=== PATIENT | female | born 1995 | race Caucasian/White ===

== ENCOUNTER 2020-04-08 11:30 | Emergency (ER) | payer BC, SELFPAY ==
[2020-04-08 11:31] VITALS: BP 122/70; PULSE 116; RESP 20; TEMP 35.9; O2SAT 99; BMI 25.6
--- NOTE | 2020-04-08 11:45 | US_ITS ---
STUDY: FIRST TRIMESTER OBSTETRICAL ULTRASOUND REASON FOR EXAM: Female, 25 years old heavy bleeding LMP: January 09, 2020 TECHNIQUE: Transvaginal TECHNICAL QUALITY: Adequate. PRIOR ULTRASOUND: None. FINDINGS: There is no demonstrated intrauterine gestational sac. There is no demonstrated yolk sac. The uterus measures 10.1 x 5.4 x 6.1 cm. There is no demonstrated uterine fibroid. The endometrial stripe measures 6.4 mm and is hyperechoic at the level of the uterine fundus. Within the lower uterine segment the endometrium is thickened measuring up to 17.9 mm and is slightly heterogenous. The right ovary measures 2.9 x 3.3 x 1.8 cm. There is no right ovarian cyst. There is no visualized right adnexal mass or complex lesion. The left ovary measures 2.8 x 2.9 x 1.3 cm. There is no left ovarian cyst. There is no visualized left adnexal mass or complex lesion. There is minimal fluid in the cul de sac. US/Transvaginal w/Preg US IMPRESSION: No intrauterine identified. Thickened slightly heterogenous endometrial stripe within the lower uterine segment, may be partially secondary to blood products. Electronically Signed: Allyson Aviles MD at 15:29 EDT Tel , Service support ,
--- NOTE | 2020-04-08 11:48 | ED.DCSUM_ITS ---
History of Present Illness Informant: Patient Onset: Today Context: Sudden Onset Timing: Continuous Quality: Vaginal bleeding Location: Vaginal Current Severity: Moderate Maximum Severity: Severe Worsened by: Nothing Relieved by: Nothing Associated Symptoms: Pelvic cramping Narrative: 25-year-old female G2, P1 with a natural delivery about 5 years ago presents to the emergency department with vaginal bleeding. She states that she estimates she is 11 weeks based on her last menstrual period and she had a positive home test last week. She has not yet seen an [facility]. She woke up at 4 AM today to use the bathroom and noticed a heavy amount of vaginal bleeding similar to the amount of bleeding she gets with a period. And she had some small clots. Some mild pelvic cramping. Bleeding has continued throughout the morning. She is not lightheaded or dizzy. No nausea vomiting or diarrhea. No cough congestion or chest pain. No urinary symptoms. No sick contacts. She is not on blood thinners. Prior similar symptoms: No Recent Illness/Hospitalization: No <Delifno Couch - Last Filed: 04/08/20 15:37> <Mian Koenig - Last Filed: 05/02/20 14:37> Chief Complaint: Vag Bld, Preg Past Medical History Prior records reviewed: Yes Past Medical History: None Surgical History: no surgical history Lives: With Family Smoking Status: Former smoker Alcohol: None Drugs: None <Delfino Couch - Last Filed: 04/08/20 15:37> <Mian Koenig - Last Filed: 05/02/20 14:37> - Allergies and Home Meds Allergies/Adverse Reactions: Allergies venom-honey bee [bee venom (honey bee)] Adverse Reaction (Verified 04/08/20 11:30) Anaphylaxis Primary Care Physician: Nick Gil MD [STAFF PHYSICIAN] - Matilde Reyes MD [Primary Care Provider] - Review of Systems All systems negative except as indicated General: Denies: Chills, Fever, Malaise Eyes: Denies: Visual changes - bilaterally, Blurred Vision - bilaterally, Diplopia ENT: Denies: Rhinorrhea, Sore throat Cardiovascular: Denies: Chest pain, Palpitations, Heart racing Respiratory: Denies: Dyspnea, Cough, Sputum Gastrointestinal: Reports: Abdominal pain. Denies: Nausea, Vomiting, Diarrhea, Constipation, Melena, Hematochezia Genitourinary: Reports: - - Vaginal bleeding. Denies: Dysuria, Hematuria, Frequency Musculoskeletal: Denies: Myalgias, Arthralgias, Neck pain, Back pain Skin: Denies: Rash, Abscess, Abrasions, Wounds Neurological: Denies: Headache, Weakness Hematologic: Denies: Easy bruising, Easy bleeding <Delfino Couch - Last Filed: 04/08/20 15:37> Physical Exam Vital Signs/Narrative: Vital Signs Temp Pulse Resp BP Pulse Ox 04/08/20 11:31 96.6 F L 116 H 20 H 122/70 H 99 Inital Vital Signs reviewed: Yes General: Well nourished, Well developed, No Acute Distress Head: Normocephalic, Atraumatic Eyes: Perrl, EOMI ENT: Moist mucous membranes Neck: Supple, Nontender, No lymphadenopathy, No JVD Cardiovascular: Regular rate, Regular rhythm, No murmurs Respiratory: No distress, CTA bilaterally, Chest nontender Abdomen: Soft, Nontender, Nondistended, Normal bowel sounds, No masses Back: Nontender, Normal Inspection. Negative for: CVA tenderness Extremities: Nontender, No edema Skin: Normal color, No rash, No Trauma Neurological: Alert, Oriented x3, Normal Gait Psychological: Normal affect, Normal Mood <Delfino Couch - Last Filed: 04/08/20 15:37> Diagnostic/Tx/Re-eval Impressions Obstetrics Ultrasound 04/08/20 11:45 IMPRESSION: No intrauterine identified. Thickened slightly heterogenous endometrial stripe within the lower uterine segment, may be partially secondary to blood products. Electronically Signed: Allyson Aviles MD at 15:29 EDT Tel , Service support , 04/08/20 11:45 Transvaginal w/Preg US [US] Stat Laboratory Results 04/08/20 04/08/20 04/08/20 12:00 12:00 12:00 WBC 15.1 H RBC 3.51 L Hgb 10.8 L Hct 31.5 L MCV 89.7 MCH 30.8 MCHC 34.3 RDW Std Deviation 38.3 RDW Coeff of Sharmin 11.9 Plt Count 267 MPV 8.7 Immature Gran % (Auto) 0.400 Neut % (Auto) 84.9 H Lymph % (Auto) 9.0 L [place] % (Auto) 5.4 Eos % (Auto) 0.1 Baso % (Auto) 0.2 Absolute Neuts (auto) 12.8 H Absolute Lymphs (auto) 1.36 Nucleated RBC % 0 HCG, Quant 531 H Blood Type A POSITIVE - Medical Decision Making Patient CBC was unremarkable. Quantitative hCG is 500. Ultrasound shows no intrauterine or retained products. I discussed with patient she likely had a miscarriage. She will follow-up in the next several days with her [facility] through [facility] in [place]. On repeat exam she is not having any pain or bleeding and is comfortable with plan of discharge with close outpatient follow-up <Delfino Couch - Last Filed: 04/08/20 15:37> - Medical Decision Making Patient was seen with Delfino agree with history and physical as above presents with vaginal bleeding abdomen soft and nontender we will obtain ED evaluation with labs ultrasound please see the chart for full details and disposition <Mian Koenig - Last Filed: 05/02/20 14:37> ED Disposition <Delfino Couch - Last Filed: 04/08/20 15:37> <Mian Koenig - Last Filed: 05/02/20 14:37> - Plan for ED Patient: Disposition: Home or Assisted Living Diagnosis: Incomplete miscarriage Instructions: ED MISCARRIAGE Incomplete Referrals: Matilde Reyes MD [Primary Care Provider] - Nick Gil MD [STAFF PHYSICIAN] -
[2020-04-08 12:16] LABS: Absolute Lymphocyte Count 1.36 X10^3/uL (0.83-4.51); Absolute Neutrophil Count 12.8 X10^3/uL (2.0-7.7); Basophil# 0.03 X10^3/uL; Basophil% 0.2 % (0-1); Eosinophil# 0.02 X10^3/uL; Eosinophils% 0.1 % (0-5); Hematocrit 31.5 % (37-47); Hemoglobin 10.8 g/dL (12.0-15.0); Lymphocyte # 1.36 X10^3/ul (4.0); Mean Corp Hgb Conc 34.3 g/dL (32-36); Mean Corpuscular Hgb 30.8 pg (27.0-32.0); Mean Corpuscular Volume 89.7 fL (81-99); Mean Platelet Vol. 8.7 fl (6.2-12.0); Monocyte# 0.81 X10^3/uL; Monocyte% 5.4 % (0-10); NRBC Flagged by Analyzer 0 % (0-5); Neutrophil # 12.82 X10^3/uL (2.7-7.7); Neutrophil % 84.9 % (47-70); Platelet Count 267 K/mm3 (150-450); RBC Distribution Width CV 11.9 % (11.6-14.6); RBC Distribution Width SD 38.3 fl (35.1-43.9); Red Blood Count 3.51 M/mm3 (4.2-5.4); White Blood Count 15.1 K/mm3 (4.4-11.0)
[2020-04-08 12:33] LABS: hCG Titer Quant., Serum 531 mIU/mL (1-3)
[2020-04-08 14:38] VITALS: BP 114/68; PULSE 104; RESP 16; O2SAT 99
[2020-04-08 15:49] VITALS: BP 114/67; PULSE 116; RESP 16; O2SAT 99
== END 2020-04-08 15:50 | disposition home or self-care (01) ==
PROVIDERS: Emergency Provider Physician Assistant Medical; PCP Family Medicine
DX: O03.4 Incomplete spontaneous abortion without complication (principal); Z87.891 Personal history of nicotine dependence
CPT/HCPCS: 76817; 84702; 85025; 86900; 86901; 99283; A4216

== ENCOUNTER 2022-09-23 09:29 | Emergency (ER) | payer MEDICAID, SELFPAY ==
[2022-09-23 09:31] VITALS: BP 133/81; PULSE 116; RESP 17; TEMP 36; O2SAT 99; BMI 29.2
--- NOTE | 2022-09-23 09:53 | CT_ITS ---
STUDY: CT ABDOMEN AND PELVIS WITHOUT CONTRAST REASON FOR EXAM: Female, 27 years old. Left flank pain. 14 WEEKS RADIATION DOSAGE (If Supplied By Facility): CTDIvol = ( 8.75 ) mGy, DLP = ( 424.19 ) mGycm TECHNIQUE: Transaxial images were obtained from the dome of the diaphragm to the symphysis pubis without oral contrast, and without intravenous contrast. Sagittal and coronal images were reconstructed. Individualized dose optimization techniques were used for this CT. COMPARISON: None. FINDINGS: Minimal degree of left basilar atelectasis. The visualized portions of the heart are within normal limits. Normal liver. Normal gallbladder and extrahepatic biliary system. Normal spleen. Normal pancreas. Normal bilateral adrenal glands. Normal right kidney. Normal left kidney. There is a small hiatal hernia. Normal small intestine. Normal colon. Findings suggestive of a small calcified appendicolith within the appendix. Small lymph nodes are seen in the mesenteric fat in the right lower quadrant suggesting mesenteric adenitis. Normal abdominal aorta. Normal inferior vena cava. Normal retroperitoneum. Normal urinary bladder. Normal abdominal wall. Normal osseous structures. CT/Abdomen/Pelvis without Cont IMPRESSION: No obstructive uropathy is seen. Findings suggestive of tiny appendicoliths within the nondistended appendiceal lumen. Electronically Signed: Toney Roberson MD at 10:28 EDT ,
--- NOTE | 2022-09-23 09:54 | ED.VIS.GI ---
HPI HPI - GI History of Present Illness Chief Complaint: Abd Pain Detail of Chief Complaint: Abdominal pain that started suddenly this morning Informant: patient Narrative Narrative: Patient presents with left-sided lower abdominal pain that started suddenly this morning while at work. Patient states she was doing some paperwork. The pain was severe and caused nausea but no vomiting. Patient is 14 weeks . Patient is G5, P2. Patient has no history of kidney stones. Patient denies urinary symptoms of frequency, urgency, or hematuria. Patient currently rates her pain a 6 out of 10. Prior similar symptoms: No PFSH PFSH Medical History no medical history Home Medications vit 115-iron fum 29 mg iron-folic acid 1 mg-dss 25 mg tablet 1 tab PO DAILY 09/23/22 [History Last Taken Unknown] Allergy/AdvReac Type Severity Reaction Status Date / Time venom-honey bee AdvReac Anaphylaxis Verified 04/08/20 11:30 [bee venom (honey bee)] Surgical History (Updated 09/23/22 @ 09:34 by Rachna Singleton) History of appendectomy Social History Smoking Status: Former smoker ROS ROS ED Review of Systems ROS Unobtainable: other Constitutional Constitutional ED: Reports lethargy; Denies chills, fever(s), sweats or weight loss Eyes Eyes: Denies blurry vision, change in vision or diplopia ENT ENT ED: Denies rhinorrhea or sore throat Cardiovascular Cardiovascular: Denies chest pain, orthopnea or racing heartbeat Respiratory/Chest Respiratory/Chest: Denies cough, dyspnea, dyspnea on exertion, orthopnea or sputum Gastrointestinal Gastrointestinal: Reports abdominal pain and nausea; Denies diarrhea or vomiting Genitourinary Genitourinary ED: Denies dysuria, hematuria or urinary frequency Musculoskeletal Musculoskeletal: Denies arthralgias, back pain, myalgias or neck pain Integumentary Denies abscess, Abrasions or rash Neurologic Neurologic: Denies headache(s) or weakness Psychiatric Psychiatric: Denies anxiety, depression or suicidal thoughts Endocrine Endocrinology: Denies polydipsia, polyphagia or polyuria Hematologic/Lymphatic Hematologic/Lymphatic: Denies easy bleeding, easy bruising or lymphadenopathy Allergic/Immunologic Allergic/Immunologic ED: Denies mouth swelling, tongue swelling or urticaria EXAM Physical Exam Const Vital Signs: 09/23/22 09:31 Temperature 96.8 F L Temperature Source Temporal Pulse Rate 116 H Respiratory Rate 17 Blood Pressure 133/81 H Blood Pressure Mean 98 Pulse Ox 99 Oxygen Delivery Method Room Air Positive well nourished and well developed General Appearance ED: well developed and NAD HEENT Reports TM's clear and moist mucous membranes normocephalic and atraumatic; Negative for trauma or tenderness Tympanic Membrane ED: Yes TM's clear Eyes PERRL and EOMs intact bilaterally General Eye ED: Negative for pale conjunctiva or scleral icterus Neck no lymphadenopathy, supple and no JVD General: Negative for tenderness Chest Wall inspection of chest normal and palpation of chest normal Chest: Negative for tenderness Resp normal respiratory effort and clear to auscultation bilaterally Effort and Inspection: Negative for respiratory distress or pain with movement Auscultation: Negative for rhonchi, wheezes or diminished lung sounds Cardio regular rate, regular rhythm, S1 normal heart sound, S2 normal heart sound and no murmurs Peripheral Pulses: pulses 2+ throughout GI normal to inspection, nondistended, normoactive bowel sounds, soft to palpation, non-distended and no masses GI Narrative: Tenderness to palpation over the left lower quadrant with some guarding. There is no rebound, rigidity, or peritoneal signs. Back/Spine no CVA tenderness and no thoracic nor lumbar tenderness Extremity normal to inspection General Extremety ED: Negative for edema General Extremity: Negative for edema Neuro oriented x3, CN's II-XII intact bilaterally, no sensory deficits noted and gait normal Sensorium / Orientation: awake, alert, oriented to person, oriented to place and oriented to time Motor Exam: strength 5/5 throughout and strength abnormal Psych mental status grossly normal Skin no rashes or lesions noted and no wounds MDM MDM MDM Narrative Medical decision making narrative: IV line established on arrival. Patient did not want any pain medicine initially. I had discussion with patient about my suspicion this could be a kidney stone and it would be important to know the size as to determine if she will be able to pass it on her own. Discussed radiation exposure given her . Patient would like to proceed with the CT scan. Lab work-up unremarkable other than a chronically elevated WBC count. Kidney function normal. Urinalysis essentially unremarkable. CT flank was obtained which did not show any obstructive uropathy or other acute disease process. At this point reevaluated patient and she is feeling like her symptoms have resolved. At this point etiology of her pain is unclear although suspect possibility she may have passed a small stone. Patient advised to follow-up with her primary care physician as needed. Patient to return if worsening pain, fever, vomiting, or condition worsen anyway. heart tones obtained and were normal. Lab Data Attestation: I reviewed the patient's lab results. Labs: Laboratory Results - last 24 hr 09/23/22 09/23/22 09/23/22 09:44 09:44 10:45 WBC 14.7 H RBC 3.95 L Hgb 12.2 Hct 35.2 L MCV 89.1 MCH 30.9 MCHC 34.7 RDW Std Deviation 38.8 RDW Coeff of Sharmin 12.0 Plt Count 325 MPV 9.1 Immature Gran % (Auto) 0.500 Neut % (Auto) 75.4 H Lymph % (Auto) 15.9 L [place] % (Auto) 7.3 Eos % (Auto) 0.7 Baso % (Auto) 0.2 Absolute Neuts (auto) 11.1 H Absolute Lymphs (auto) 2.34 Nucleated RBC % 0 Sodium 137 Potassium 3.7 Chloride 107 Carbon Dioxide 22.0 Anion Gap 8 BUN 6 L Creatinine 0.48 L Estim Creat Clear Calc 144.34 Est GFR (MDRD) Af Amer 196 Est GFR (MDRD) Non-Af 162 BUN/Creatinine Ratio 12.4 Glucose 104 Calcium 9.2 Urine Color Yellow Urine Clarity Sl. Cloudy Urine pH 8.0 Ur Specific [place] 1.015 Urine Protein Negative Urine Glucose (UA) Normal Urine Ketones Negative Urine Occult Blood Negative Urine Nitrite Negative Urine Bilirubin Negative Urine Urobilinogen Normal Ur Leukocyte Esterase 25 H Urine RBC 0 SEEN Urine WBC 0-5 SEEN Ur Squamous Epith Cells 0-5 SEEN Urine Bacteria 0 SEEN Urine Mucus 0 SEEN Radiography Diagnostic Testing: Clinical Impression(s) from Imaging Studies Abdomen/Pelvis CT 09/23/22 09:53 IMPRESSION: No obstructive uropathy is seen. Findings suggestive of tiny appendicoliths within the nondistended appendiceal lumen. Electronically Signed: Toney Roberson MD at 10:28 EDT , Discharge Plan Triage Chief Complaint: Abd Pain ED Provider: Cordell Carrera Dx/Rx/DC Orders Clinical Impression: Abdominal pain Instructions: ED Abdominal Pain Unkn Cause Fem Prescriptions: No Action prenat 115-iron [id number] 29 mg iron- 1 mg-25 mg Tablet 1 tab PO DAILY Primary Care Provider: Matilde Reyes Referrals: Matilde Reyes MD [Primary Care Provider] - As Needed Disposition Disposition: Home, Self Care
[2022-09-23 10:15] LABS: Absolute Lymphocyte Count 2.34 X10^3/uL (0.83-4.51); Absolute Neutrophil Count 11.1 X10^3/uL (2.0-7.7); Basophil# 0.03 X10^3/uL; Basophil% 0.2 % (0-1); Eosinophils% 0.7 % (0-5); Hematocrit 35.2 % (37-47); Hemoglobin 12.2 g/dL (12.0-15.0); Lymphocyte # 2.34 X10^3/ul (0.83-4.51); Lymphocyte % 15.9 % (19-41); Mean Corp Hgb Conc 34.7 g/dL (32-36); Mean Corpuscular Hgb 30.9 pg (27.0-32.0); Mean Corpuscular Volume 89.1 fL (81-99); Mean Platelet Vol. 9.1 fl (6.2-12.0); Monocyte# 1.08 X10^3/uL; Monocyte% 7.3 % (0-10); NRBC Flagged by Analyzer 0 % (0-5); Neutrophil # 11.07 X10^3/uL (2.7-7.7); Neutrophil % 75.4 % (47-70); Platelet Count 325 K/mm3 (150-450); RBC Distribution Width SD 38.8 fl (35.1-43.9); Red Blood Count 3.95 M/mm3 (4.2-5.4); White Blood Count 14.7 K/mm3 (4.4-11.0)
[2022-09-23] MEDS: 0.9% Normal Saline 1,000 ML 125 ML IV (10:20)
[2022-09-23 10:28] LABS: Anion Gap 8 (5-15); BUN 6 mg/dL (7-18); BUN/Creat Ratio 12.4 RATIO (10-20); Calcium,Total 9.2 mg/dL (8.5-10.1); Chloride 107 mmol/L (98-107); Creatinine, Serum 0.48 mg/dL (0.55-1.02); EST Glomerular Filtration Rate 162 mL/min (>60); Est Glom Filt Rate - Afr Amer 196 mL/min (>60); Estimated Creatinine Clearance 144.34 ml/min; Glucose 104 mg/dL (74-106); Potassium 3.7 mmol/L (3.5-5.1); Sodium Level 137 mmol/L (136-145)
[2022-09-23 10:50] LABS: Bacteria 0 SEEN /hpf (None Seen); Mucous, Urine 0 SEEN /hpf (<or=2+); Red Blood Cells-Urine 0 SEEN /hpf (0-5)
[2022-09-23 10:57] LABS: Color, Urine Yellow (Yellow); Glucose, Dipstick Normal (Normal); Ketone-Dipstick Negative (Negative); Leukocyte Esterase-Dipstick 25 /ul (Negative); Nitrite-Dipstick Negative (Negative); Occult Blood-Urine Negative /ul (Negative); Protein-Dipstick Negative (Negative); Specific Gravity, Urine 1.015 (1.002-1.030); Urine Bilirubin Dipstick Negative (Negative); Urine Clarity Sl. Cloudy (Clear); Urine Urobilinogen Normal (Normal)
[2022-09-23 11:07] LABS: Squamous Epithelial Cells - UA 0-5 SEEN /hpf (5-10); White Blood Cells 0-5 SEEN /hpf (0-5)
[2022-09-23 11:49] VITALS: PULSE 94; RESP 17; O2SAT 97
== END 2022-09-23 11:52 | disposition home or self-care (01) ==
PROVIDERS: Emergency Provider Emergency Medicine; PCP Family Medicine; Visit Provider Emergency Medicine
DX: O26.892 Other specified pregnancy related conditions, second trimester (principal); R10.9 Unspecified abdominal pain; Z3A.14 14 weeks gestation of pregnancy; Z90.49 Acquired absence of other specified parts of digestive tract; Z87.891 Personal history of nicotine dependence
CPT/HCPCS: 74176; 80048; 81001; 85025; 96360; 99283; J7030

== ENCOUNTER 2023-03-12 22:28 | Inpatient (IN) | payer MEDICAID, SELFPAY ==
--- NOTE | 2023-03-12 22:46 | PCM.HP.OB ---
HPI - General General Date of Admission: 03/12/23 HPI Narrative SOPHIE CHAN, is a 28 F at 39.1 weeks gestation who presents with large gush of fluid tonight. She reports feeling irregular contractions. Positive movement. has been uncomplicated. Maternal Data Information CARLOS MANUEL Calculator Estimated Delivery Date Method Current WG Current Estimate 03/18/23 Manual 39w 1d PFSH PFSH Home Medications vit 115-iron fum 29 mg iron-folic acid 1 mg-dss 25 mg tablet 1 tab PO DAILY 09/23/22 [History Last Taken Unknown] Allergy/AdvReac Type Severity Reaction Status Date / Time venom-honey bee AdvReac Anaphylaxis Verified 04/08/20 11:30 [bee venom (honey bee)] Surgical History (Updated 09/23/22 @ 09:34 by Rachna Singleton) History of appendectomy Social History Smoking Status: Former smoker History Elective abortions Hx Para 1 Spontaneous abortions Hx # Term Pregnancies Ectopic pregnancies Hx # Pregnancies Multiple births # of living children ROS Eyes Eyes: Denies blurry vision, change in vision or spots in vision ENT HEENT: Denies dizziness or headache(s) Cardiovascular Cardiovascular: Denies abdominal pain, chest pain or dyspnea Respiratory/Chest Respiratory/Chest: Denies cough, dyspnea, shortness of breath at rest or shortness of breath with exertion Gastrointestinal Gastrointestinal: Denies abdominal pain, diarrhea or vomiting Genitourinary Genitourinary: Denies change in urinary stream, difficulty urinating or dysuria Musculoskeletal Musculoskeletal: Reports none Integumentary Integumentary: Denies rash Neurologic Neurologic: Denies dizziness, headache(s), memory loss or weakness Psychiatric Psychiatric: Reports none Physical Exam Const alert, oriented x3 and no apparent distress General Appearance: cooperative Orientation / Consciousness: awake Exam Limitations: no limitations HEENT normocephalic Head and Scalp: normal to inspection Eyes General Eye: normal appearance of both eyes Neck full ROM and no lymphadenopathy Lymph Lymphatic: no lymphadenopathy noted Chest inspection of chest normal Resp normal respiratory effort, normal air movement and clear to auscultation bilaterally Effort and Inspection: able to speak in complete sentences and symmetric chest movement Cardio regular rate and regular rhythm GI normal to inspection, nondistended, normoactive bowel sounds Amniotic Fluid: clear amniotic fluid Back/Spine normal ROM Extremity full ROM and no calf tenderness Skin no rashes or lesions noted General Skin Exam: no breakdown Neuro oriented x3 and CN's II-XII intact bilaterally Psych mental status grossly normal and thought process normal Labs Labs Labs: Blood Type A POSITIVE Antibody Screen NEGATIVE Hct 35.2 % (37-47) L Hgb 12.2 g/dL (12.0-15.0) Obstetrics US Rubella IgG Antibody 20.2 IU/mL Hep Bs Antigen Negative (Negative-) Chlamydia DNA (MERON) Negative (Negative-) Neisseria gonorrhoeae DNA (MERON) Negative (Negative-) Glucose 1 Hr 50 gm 104 mg/dL (70-140) Group B Strep DNA Negative (Negative) Rhogam given: No Assessment & Plan (1) 39 weeks gestation of : (2) Spontaneous rupture of amniotic membranes: (3) Supervision of normal , antepartum: PLAN: Plan Patient grossly ruptured- pants saturated- clear fluid Admit to labor and delivery Routine labs Start IV and run fluids per policy GBS negative Title 19 signed in office Start Pitocin at 2 mu/ min and increase per policy Pain medication/epidural if indicated Dr. Olguin notified of admission
[2023-03-12 23:04] VITALS: BP 116/73; PULSE 103; TEMP 36.9
[2023-03-12 23:05] VITALS: TEMP 37
[2023-03-12 23:07] VITALS: BMI 30.9
[2023-03-12] MEDS: Lactated Ringers 1,000 ML 200 ML IV (23:30)
[2023-03-12 23:41] LABS: Absolute Lymphocyte Count 3.53 X10^3/uL (0.83-4.51); Basophil# 0.05 X10^3/uL; Basophil% 0.3 % (0-1); Eosinophil# 0.11 X10^3/uL; Eosinophils% 0.7 % (0-5); Hematocrit 34.1 % (37-47); Hemoglobin 11.3 g/dL (12.0-15.0); Lymphocyte # 3.53 X10^3/ul (0.83-4.51); Lymphocyte % 21.4 % (19-41); Mean Corp Hgb Conc 33.1 g/dL (32-36); Mean Corpuscular Hgb 30.8 pg (27.0-32.0); Mean Corpuscular Volume 92.9 fL (81-99); Mean Platelet Vol. 9.9 fl (6.2-12.0); Monocyte# 1.69 X10^3/uL; Monocyte% 10.2 % (0-10); NRBC Flagged by Analyzer 0 % (0-5); Neutrophil # 11.01 X10^3/uL (2.7-7.7); Neutrophil % 66.7 % (47-70); POSITIVE DIFFERENTIAL YES; Platelet Count 441 K/mm3 (150-450); RBC Distribution Width SD 44.5 fl (35.1-43.9); Red Blood Count 3.67 M/mm3 (4.2-5.4); White Blood Count 16.5 K/mm3 (4.4-11.0)
[2023-03-12 23:43] LABS: Differential Indicated SCAN CRITERIA MET
[2023-03-13] VITALS (23 sets, daily range): BP systolic 103–131; BP diastolic 55–85; PULSE 58–99; RESP 15–18; TEMP 36.4–37; O2SAT 80–98
[2023-03-13 00:16] LABS: Differential Comment SCANNED
[2023-03-13] MEDS: Oxytocin 15 Units/NS 250ml 15 UNITS/250 ML IV.SOLN 83 UNITS IV (02:15)
[2023-03-13 02:26] LABS: Syphilis Antibodies Non-reactive
--- NOTE | 2023-03-13 02:29 | EX.PCM.OBRPT ---
Assessment & Plan (1) Precipitous delivery: (2) (spontaneous vaginal delivery): (3) Laceration, obstetrical, first degree: Maternal Data Information CARLOS MANUEL Calculator Estimated Delivery Date Method Current WG Current Estimate 03/18/23 Manual 39w 2d Vaginal Delivery Maternal Presentation Maternal Presentation: Active Labor and Spontaneous Rupture of Membranes Maternal Presentation: Patient presented with spontaneous rupture of membranes and contractions. Operative Information Date of Procedure: 03/13/23 Pre-Operative Diagnosis: Term gestation, spontaneous labor, spontaneous rupture of membranes Post-Operative Diagnosis: Same, Live male infant Surgery / Procedure Performed: Spontaneous Vaginal Delivery Type of Anesthesia: None Estimated Blood Loss: 250 Time of Delivery: 02:14 Findings Description of Procedure: Called to patient's room due to urgency to push. Patient found to be 10 cm +1 station. with minimal maternal effort, head delivered over intact perineum followed by anterior shoulder and remainder of body without traction. Loose cord around neck easily reduced. Vigorous male placed on maternal abdomen and attended to by nursing staff. Pitocin IV started for active management of the third stage of labor. 3 vessel cord clamped and cut by patient's sister. Infant placed immediately skin to skin with patient. Placenta delivered shortly there after spontaneously and intact. Small first degree laceration noted but not actively bleeding and was hemostatic. Fundus firm and 2 below U. EBL 250 cc. APGARS 8/9. Patient and infant bonding well at this time. Dr. Olguin notified of delivery. Presentation: Vertex Amniotic Membrane Rupture Type: Spontaneous Time of Membrane Rupture: 2042 Amniotic Fluid Description: Clear Placental Delivery Description: Spontaneous Placenta Disposition: [facility] Cord Vessel Description: 3 Vessels Cord Entanglement: Around neck x 1, loose Nuchal Cord Compression: Without compression A Gender: Male (1 minute): 8 (5 minute): 9 Delayed Cord Clamping: Yes Post Vaginal Delivery Medications Given After Delivery: IV Pitocin Episiotomy Description: None Laceration: 1st degree Complication Complications: None
[2023-03-13 12:57] LABS: Pathologist Review Reviewed
[2023-03-14] VITALS (7 sets, daily range): BP systolic 128–143; BP diastolic 68–80; PULSE 61–65; RESP 16–18; TEMP 36.2–36.6; O2SAT 97–99
--- NOTE | 2023-03-14 09:14 | PCM.PN.OB ---
Subjective Subjective Doing well per patient and nursing staff. Ambulating and taking PO without difficulty. Voiding and passing flatus. Pain controlled. Bottle feeding. Denies headache, visual changes, chest pain, shortness of breath, leg pain or increased bleeding. Lochia normal. Objective Data Objective Data Vital Signs: Vital Signs Temp Pulse Resp BP Pulse Ox O2 Del Method 97.2 F L 61 18 134/79 H 97 Room Air 03/14/23 07:58 03/14/23 07:58 03/14/23 07:58 03/14/23 07:58 03/14/23 07:58 03/14/23 07:58 Oxygen Delivery Method Room Air Weight: 174 lb 6.17 oz Body Mass Index (BMI) 30.9 Intake & Output: Intake and Output for Last 24 Hours 03/12/23 03/13/23 03/14/23 23:59 23:59 23:59 Intake Total 800 / 800 Output Total 150 / 150 500 / 500 Balance -150 / -150 300 / 300 Lab / Micro Data Result Diagrams: 03/12/23 23:15 Labs: Laboratory Results - last 24 hr 03/12/23 23:15: Diff Path Review Reviewed ROS Constitutional Constitutional: Reports systems reviewed and no addt'l complaints, except as documented; Denies headache(s) Eyes Eyes: Denies acute decrease in peripheral vision, blurry vision or change in vision ENT HEENT: Reports systems reviewed and no addt'l complaints, except as documented Cardiovascular Cardiovascular: Denies chest pain or dizziness Respiratory/Chest Respiratory/Chest: Denies cough, dyspnea, dyspnea on exertion, shortness of breath at rest or shortness of breath with exertion Gastrointestinal Gastrointestinal: Denies abdominal pain, diarrhea, nausea or vomiting Genitourinary Genitourinary: Denies abdominal discomfort Musculoskeletal Musculoskeletal: Denies limited range of motion Integumentary Integumentary: Reports systems reviewed and no addt'l complaints, except as documented Neurologic Neurologic: Reports systems reviewed and no addt'l complaints, except as documented Psychiatric Psychiatric: Reports systems reviewed and no addt'l complaints, except as documented Endocrine Endocrinology: Reports systems reviewed and no addt'l complaints, except as documented Hematologic/Lymphatic Hematologic/Lymphatic: Reports systems reviewed and no addt'l complaints, except as documented Allergic/Immunologic Allergic/Immunologic: Reports systems reviewed and no addt'l complaints, except as documented Physical Exam Const alert and oriented x3 General Appearance: cooperative Orientation / Consciousness: awake, oriented to person, oriented to place and oriented to time Exam Limitations: no limitations HEENT normocephalic Head and Scalp: normal to inspection, normocephalic and atraumatic Face and Sinus: normal facial exam Eyes General Eye: normal appearance of both eyes Neck full ROM Chest Chest: symmetrical chest wall rise Resp normal respiratory effort and normal air movement Auscultation: clear to auscultation bilaterally Cardio regular rate, regular rhythm, S1 normal heart sound, S2 normal heart sound, no murmurs, no rub, no gallops and no clicks GI normal to inspection, nondistended, normoactive bowel sounds and non-tender appearance of the vagina normal Bladder / Kidney Exam: no CVA tenderness Back/Spine normal ROM Extremity normal to inspection and full ROM Skin no rashes or lesions noted Neuro oriented x3, CN's II-XII intact bilaterally and moves all extremities Sensorium / Orientation: awake, alert and oriented to person Motor Exam: clonus absent Deep Tendon Reflexes: Rt Patellar (L4): 2+ and Lt Patellar (L4): 2+ Assessment & Plan (1) Laceration, obstetrical, first degree: (2) (spontaneous vaginal delivery): (3) Precipitous delivery: PLAN: Plan 1) PPD #1 2) Vitals stable 3) Pain controlled 4) D/C home 5) Follow up in 2 weeks and 6 weeks
--- NOTE | 2023-03-14 09:56 | PCM.DC.SUM ---
Providers Date of Admission: 03/12/23 Primary Care Physician: Dr. Matilde Reyes MD Reason For Visit: VAG Diagnosis Discharge Diagnosis (1) Laceration, obstetrical, first degree: Status: Acute Code(s): O70.0 - First degree perineal laceration during delivery (2) (spontaneous vaginal delivery): Status: Acute Code(s): O80 - Encounter for full-term uncomplicated delivery (3) Precipitous delivery: Status: Acute Code(s): O62.3 - Precipitate labor Plan 1) PPD #1 2) Vitals stable 3) Pain controlled 4) D/C home 5) Follow up in 2 weeks and 6 weeks Medications at Discharge Home Medications vit 115-iron fum 29 mg iron-folic acid 1 mg-dss 25 mg tablet 1 tab PO DAILY 09/23/22 acetaminophen 500 mg tablet 1,000 mg PO Q6H PRN PRN Pain 1-10 Or Fever #0 tabs 03/14/23 benzocaine 20 %-menthol 0.5 % topical aerosol (Dermoplast (with menthol)) 1 spray topical TID PRN PRN perineal discomfort #0 grams 03/14/23 naproxen 500 mg tablet 500 mg PO Q8H PRN PRN Pain Score 1-10 #0 tabs 03/14/23 Weight / BMI Weight Weight: 174 lb 6.17 oz Body Mass Index (BMI) 30.9 ABG / Lab / Microbiology Data Result Diagrams: 03/12/23 23:15 Laboratory: Laboratory Results - last 24 hr 03/12/23 23:15: Diff Path Review Reviewed Meaningful Use Info Meaningful Use Diagnoses (Choose all that apply): None applicable Discharge Plan Admission Admit Date/Time: 03/12/23 22:28 Primary Reason for Your Visit: Vaginal Delivery Attending Provider: Prerna Valadez Primary Care Provider: Matilde Reyes Discharge Orders/Prescriptions Prescriptions: New Dermoplast (with menthol) 20-0.5 % Aerosol 1 spray topical TID PRN PRN (Reason: perineal discomfort) Qty: 0 0RF Protocol: *Topical Application Instructions APPLICATION INSTRUCTIONS: 1 spray 3 times a day as needed for perineal discomfort acetaminophen 500 mg Tablet 1,000 mg PO Q6H PRN PRN (Reason: Pain 1-10 Or Fever) Qty: 0 0RF naproxen 500 mg Tablet 500 mg PO Q8H PRN PRN (Reason: Pain Score 1-10) Qty: 0 0RF Continued prenat 115-iron [id number] 29 mg iron- 1 mg-25 mg Tablet 1 tab PO DAILY Referrals / Follow Up: Matilde Reyes MD [Primary Care Provider] - Disposition Disposition (needs filled in before D/C Order can be placed): Home, Self Care
== END 2023-03-14 15:25 | disposition home or self-care (01) | DRG 560 ==
PROVIDERS: Admitting Provider Advanced Practice Midwife; PCP Family Medicine; Visit Provider Advanced Practice Midwife
DX: O42.92 Full-term premature rupture of membranes, unspecified as to length of time between rupture and onset of labor (principal); Z37.0 Single live birth; O62.3 Precipitate labor; O69.81X0 Labor and delivery complicated by cord around neck, without compression, not applicable or unspecified; O70.0 First degree perineal laceration during delivery; Z3A.39 39 weeks gestation of pregnancy; Z87.891 Personal history of nicotine dependence
CPT/HCPCS: 59025; 59050; 85025; 86780; 86850; 86900; 86901; 99221; J7120; G0378

== ENCOUNTER 2023-05-29 05:54 | Day surgery (SDC) | payer MEDICAID, SELFPAY ==
--- NOTE | 2023-05-13 17:07 | PCM.HP.BLA ---
History and Physical Date of Admission: 05/29/23 HPI: The patient is a 28 year old female presenting for pre-operative visit. She is scheduled for a left laparoscopic bilateral salpingectomy, for sterilization ? on 05/29/23. Procedure discussed along with risks, benefits and complications. Other alternatives discussed for management. Consent form signed? Yes. ? ? PAST MEDICAL HISTORY PAST MEDICAL HISTORY Diagnosis Date ? Anemia ? ? ? PAST SURGICAL HISTORY PAST SURGICAL HISTORY Procedure Laterality Date ? APPENDECTOMY ? 07/31/2000 ? INSERT INTRAUTERINE DEVICE ? 03/12/2015 ? removed 2018 ? IPAS ASPIRATOR ? 09/2021 ? ? ? CURRENT MEDICATIONS Current Outpatient Medications Medication Sig Dispense Refill ? prental multivitamin 27 mg iron- 800 mcg tablet Take 1 tablet by mouth once daily. ? ? ? No current facility-administered medications for this visit. ? ? ALLERGIES: Bee Sting ? PERSONAL HISTORY: SOCIAL HISTORY Social History ? Tobacco Use ? Smoking status: Former ? ? Years: 3.00 ? ? Types: Cigarettes ? ? Quit date: 05/15/2014 ? ? Years since quittin.0 ? Smokeless tobacco: Never Vaping Use ? Vaping Use: Never used Substance Use Topics ? Alcohol use: No ? Drug use: No ? FAMILY HISTORY: FAMILY HISTORY FAMILY HISTORY Problem Relation Age of Onset ? Heart Mother ? ? Hypertension Mother ? ? Lipids Mother ? ? No Known Problems Father ? ? Cervical Cancer Sister 26 ? No Known Problems Brother ? ? No Known Problems Brother ? ? No Known Problems Brother ? ? No Known Problems Brother ? ? Heart Maternal Grandmother ? ? No Known Problems Maternal Grandfather ? ? No Known Problems Paternal Grandmother ? ? No Known Problems Paternal Grandfather ? ? No Known Problems Daughter ? ? No Known Problems Daughter ? ? ? REVIEW OF SYMPTOMS: GENERAL: denies fevers or chills ENDOCRINOLOGY: has not been on steroids Cardiology : denies palpitations or chest pain Respiratory: denies SOB or cough Hematology: denies history of prolonged bleeding or easy bruising or VTE Allergy: Denies history of personal or family history of allergy to anesthesia ? PHYSICAL EXAMINATION: ? VITALS: Blood pressure 124/86, pulse 97, resp. rate 16, height 5' 3.5 (1.613 m), weight 156 lb (70.8 kg), last menstrual period 06/11/2022, SpO2 97 %, currently . ? GENERAL: The patient is well nourished, well hydrated in no acute distress. , The patient is oriented to time, place, and person. NECK: Supple. No lynphadenopathy, normal thyroid, no thyromegaly. LUNGS: Clear to auscultation bilaterally. no wheezes, rhonchi or rales HEART: Regular rate and rhythm, Normal heart sounds, and No murmurs or gallops ? IMPRESSION: sterilization request ? PLAN: The risks/benefits/alternatives and personal involved for the planned laparoscopic bilateral salpingectomy were reviewed with the patient. Her questions were answered to her satisfaction and she desires to proceed. Consent was signed. I reviewed with her postop instructions and expectations. ? ? I have reviewed and updated past medical and surgical history, medications and allergies Assessment & Plan Assessment/Plan (1) Consultation for sterilization:
--- NOTE | 2023-05-29 | FALS_PTH ---
PATIENT: SOPHIE CHAN LOC: [facility] – [place], [place] U#:[id number] AGE/SX: 28/F ROOM: RE05/29/[address]: Dr. Nancy Harris MD : 1995 BED: DIS: 05/29/2023 SPEC #: [id number] RECD: 05/29/23 10:36 STATUS: JANET REQ #: [id number] POPEYE: 05/29/23 00:[address]: Nancy Harris DEPT: SURGICAL PATHOLOGY RECD BY: Jaya Pope ENTERED: 05/29/23 10:36 SP TYPE: FALL TUBES OTHR DR: Dr. Matilde Reyes MD Tissues: Fallopian tube Procedures: Surgery Specimen Level II HEADER OPERATION: Laparoscopic salpingectomy PRE-OP DIAGNOSIS: Sterilization TISSUE SUBMITTED: Bilateral fallopian tubes MICROSCOPIC DIAGNOSIS Bilateral fallopian tubes, salpingectomy: Bilateral fallopian tubes, no pathologic diagnosis. SJ:lori 06/01/2023 MICROSCOPIC DESCRIPTION Slides are reviewed. GROSS DESCRIPTION Received in fixative is one container labeled with the patient's name and designated bilateral fallopian tubes. The specimen consists of bilateral fallopian tubes including fimbrial ends measuring 5.5 cm in length and 0.8 cm in diameter and 5.0 cm in length and 0.6 cm in diameter. The fallopian tubes are not identified as right or left. Sections reveal unremarkable cut surfaces. Transaction Coordinator sections are submitted in two cassettes with each cassette containing one fallopian tube. / ALEX:lori 05/29/2023 TC:4 CPT: 28794 x2
[2023-05-29] MEDS: Lactated Ringers 1,000 ML 15 ML IV (06:29)
[2023-05-29] MEDS: Ketorolac 30 MG/ML Syringe IV (06:30)
[2023-05-29] MEDS: Acetaminophen 500 MG Tablet 1000 MG PO (06:31)
[2023-05-29 06:32] VITALS: BP 125/85; PULSE 63; RESP 18; TEMP 36.8; O2SAT 98; BMI 27.6
[2023-05-29 06:33] LABS: Hematocrit 38.9 % (37-47); Mean Corp Hgb Conc 33.4 g/dL (32-36); Mean Corpuscular Volume 89.6 fL (81-99); Mean Platelet Vol. 8.6 fl (6.2-12.0); Platelet Count 329 K/mm3 (150-450); RBC Distribution Width CV 12.7 % (11.6-14.6); RBC Distribution Width SD 41.7 fl (35.1-43.9); Red Blood Count 4.34 M/mm3 (4.2-5.4); White Blood Count 9.4 K/mm3 (4.4-11.0)
[2023-05-29 06:40] LABS: Internal QC Validated? YES +Cl - CLEAR BKGD; Pregnancy, Urine Negative Negative
[2023-05-29] MEDS: Bupivacaine Mpf 0.5% 30 ML VIAL (08:09)
[2023-05-29 08:22] VITALS: BP 125/85; BP 139/78; PULSE 95; RESP 18; TEMP 36.6; O2SAT 99
--- NOTE | 2023-05-29 08:24 | PCM.DC ---
Discharge Instructions Diet Discharge Diet: No restrictions (Increase fluid intake for the next 48 hours.) Activity May resume sexual activity in: No Restrictions Additional Activity Instructions:: Ambulate often the next week after surgery. Nothing in the vagina for 5 days. Dressing / Incision Call your doctor if your incision/area has: Continuous Slow Oozing, Sudden Increased Bleeding, Increased Pain/ Swelling, Increased Redness and Foul Smelling Discharge Call your doctor if you observe: Fever of 101 or Higher Cleanse incision/area with: Soap & Water Additional Dressing/Incision Instructions:: Your incisions have ganglia. They can get wet. Leave them on for at least 10 days. Follow Up Care Please Follow Up With: Nancy Harris MD When: [phone] or send a [facility] message for nonurgent issues or concerns. You do not need a routine postop appointment Test Results: Test results from this visit will be discussed in further detail at your follow-up appointment, if applicable. Discharge Plan Admission Primary Reason for Your Visit: tubal sterilization Attending Provider: Nancy Harris Primary Care Provider: Matilde Reyes Discharge Orders/Prescriptions Prescriptions: New ibuprofen [ibuprofen] 600 MG tablet 600 mg PO Q6H PRN (Reason: Pain) Qty: 60 1RF hydrocodone-acetaminophen 5-300 mg tablet 1 tab PO BID PRN (Reason: pain) 4 Days Qty: 7 0RF Continued prenat 115-iron [id number] 29 mg iron- 1 mg-25 mg Tablet 1 tab PO DAILY Referrals / Follow Up: Matilde Reyes MD [Primary Care Provider] - Disposition Disposition (needs filled in before D/C Order can be placed): Home, Self Care
--- NOTE | 2023-05-29 08:26 | PCM.OPRPT ---
Problems Associated Problem List Diagnoses (1) Consultation for sterilization: Report of Operation Date of Procedure: 05/29/23 Pre-Operative Diagnosis: Sterilization request Post-Operative Diagnosis: Same Surgery/Procedure Performed:: Laparoscopic bilateral salpingectomy Description of Surgical Findings:: Normal cervix and vagina. Normal uterus tubes and ovaries. Surgeon: Nancy Harris account technician: None Type of Anesthesia: General Anesthesiologist: Freddy Acosta Special Medications: None Specimen's removed: Bilateral fallopian tubes Drains: None Estimated Blood Loss (mL): 5 Fluids Replaced: 1000 mL Description of Procedure: The patient was taken to the operating room where she was prepped and draped in the dorsolithotomy position. A weighted speculum was placed in the vagina and the anterior lip of the cervix was grasped with a tenaculum. The Gloria uterine manipulator was placed and the remainder of the instruments were removed from the vagina. Attention was turned to the abdomen. All port sites were infiltrated with 0.5% Marcaine before skin incisions were made. A 5 mm supraumbilical incision was made. The anterior abdominal wall was tented up with 2 towel clamps while a 5 mm blade less trocar and sleeve were directly inserted. Intraperitoneal placement was confirmed with the laparoscope. The pneumoperitoneum was created and the underlying abdominal contents were intact. The patient was placed in Trendelenburg. Right and left lower quadrant ports were placed under direct visualization lateral to the inferior epigastric vessels. The bowel was swept away and the above findings were noted. The Enseal device was used to clamp seal and transect the antimesenteric portions of the right tube to the cornual insertion of the uterus. The tube was amputated from the uterus and the pedicles were all confirmed to be hemostatic. The same procedure was performed on the contralateral side. The specimens were brought out through a 5 mm port. The pedicles were again examined and found to be hemostatic. The lateral ports were removed under direct visualization and no active bleeding was noted. The pneumoperitoneum was released. The skin incisions were closed with Monocryl suture in a subcuticular fashion and skin glue. The vaginal instruments were removed and the vaginal sweep was completed by me. The procedure was performed by me with assistance other than as dictated above. All sponge and needle counts were correct and the patient was taken to the recovery room in stable condition. Grafts/Implants Used: None Procedure Start Time: 07:54 Procedure Stop Time: 08:15 Complications none Admit VTE Documentation VTE Present on Admission: No VTE Mechan Device Prophylaxis: SCD's VTE Pharm Prophylaxis ordered?: No
[2023-05-29 08:30] VITALS: BP 121/70; BP 125/85; PULSE 71; RESP 16; O2SAT 96
[2023-05-29] MEDS: Lactated Ringers 1,000 ML 75 ML IV (08:30)
[2023-05-29 08:45] VITALS: BP 125/85; BP 130/73; PULSE 83; RESP 16; O2SAT 96
[2023-05-29 08:50] VITALS: BP 125/85; BP 134/75; PULSE 78; RESP 16; TEMP 36.2; O2SAT 100
[2023-05-29 09:43] VITALS: BP 125/85; BP 144/80; PULSE 66; RESP 16; TEMP 36.6; O2SAT 100
== END 2023-05-29 09:44 | disposition home or self-care (01) ==
LOC: SDC 05:56 → AC 05:57
PROVIDERS: PCP Family Medicine; Referring Provider Obstetrics & Gynecology; Visit Provider Obstetrics & Gynecology
PROC: (CPT 58661; principal; 2023-05-29 07:15)
DX: Z30.2 Encounter for sterilization (principal); Z87.891 Personal history of nicotine dependence
CPT/HCPCS: 58661; 00840; 81025; 85027; 88302; J7120; C1760; J2405

== ENCOUNTER 2024-04-19 10:32 | Emergency (ER) | payer SELFPAY ==
[2024-04-19 10:32] VITALS: BP 130/88; PULSE 106; RESP 16; TEMP 37.2; O2SAT 97; BMI 27.0
--- NOTE | 2024-04-19 10:53 | EX.ED.DYSGE1 ---
HPI History of Present Illness Chief Complaint: Rash Detail of Chief Complaint: Rash Informant: patient Narrative Narrative: Patient presents with a rash that started 2 days ago. She states its on her arms and her legs but not on her trunk. She denies recent illness. She denies new soaps or detergents or other allergens. Denies new medications. She has not had any travel. She denies tick bites. She denies any mouth lesions. Rash is pruritic. PFSH PFSH Medical History Anemia Former smoker Home Medications ?Medication ?Instructions ?Recorded ?Last Taken ?Type vit 115-iron fum 29 mg 1 tab PO DAILY 09/23/22 03/12/23 10:00 History iron-folic acid 1 mg-dss 25 mg tablet hydrocodone 5 mg-acetaminophen 300 1 tab PO BID PRN pain 4 days #7 05/29/23 Unknown Rx mg tablet tabs ibuprofen 600 mg tablet 600 mg PO Q6H PRN Pain #60 TABLETS 05/29/23 Unknown Rx hydroxyzine HCl 25 mg tablet 25 mg PO TID PRN itching #20 tabs 04/19/24 Unknown Rx prednisone 20 mg tablet 20 mg PO BID #14 tabs 04/19/24 Unknown Rx Allergy/AdvReac Type Severity Reaction Status Date / Time venom-honey bee (bee venom Allergy Anaphylaxis Verified 04/19/24 10:33 (honey bee)) Surgical History History of appendectomy Social History Smoking Status: Former smoker ROS ROS ED Review of Systems ROS Unobtainable: other Constitutional Constitutional ED: Reports lethargy; Denies chills, fever(s), sweats or weight loss Eyes Eyes: Denies blurry vision, change in vision or diplopia ENT ENT ED: Denies rhinorrhea or sore throat Cardiovascular Cardiovascular: Denies chest pain, orthopnea or racing heartbeat Respiratory/Chest Respiratory/Chest: Denies cough, dyspnea, dyspnea on exertion, orthopnea or sputum Gastrointestinal Gastrointestinal: Denies abdominal pain, diarrhea, nausea or vomiting Genitourinary Genitourinary ED: Denies dysuria, hematuria or urinary frequency Musculoskeletal Musculoskeletal: Denies arthralgias, back pain, myalgias or neck pain Integumentary Reports rash; Denies abscess or Abrasions Neurologic Neurologic: Denies headache(s) or weakness Psychiatric Psychiatric: Denies anxiety, depression or suicidal thoughts Endocrine Endocrinology: Denies polydipsia, polyphagia or polyuria Hematologic/Lymphatic Hematologic/Lymphatic: Denies easy bleeding, easy bruising or lymphadenopathy Allergic/Immunologic Allergic/Immunologic ED: Denies mouth swelling, tongue swelling or urticaria EXAM Physical Exam Const Vital Signs: 04/19/24 10:32 Temperature 98.9 F Temperature Source Temporal Pulse Rate 106 H Respiratory Rate 16 Blood Pressure 130/88 H Blood Pressure Mean 102 Pulse Ox 97 Oxygen Delivery Method Room Air Positive well nourished and well developed General Appearance ED: well developed and NAD HEENT Reports TM's clear and moist mucous membranes normocephalic and atraumatic; Negative for trauma or tenderness Tympanic Membrane ED: Yes TM's clear Eyes PERRL and EOMs intact bilaterally General Eye ED: Negative for pale conjunctiva or scleral icterus Neck no lymphadenopathy, supple and no JVD General: Negative for tenderness Chest Wall inspection of chest normal and palpation of chest normal Chest: Negative for tenderness Resp normal respiratory effort and clear to auscultation bilaterally Effort and Inspection: Negative for respiratory distress or pain with movement Auscultation: Negative for rhonchi, wheezes or diminished lung sounds Cardio regular rate, regular rhythm, S1 normal heart sound, S2 normal heart sound and no murmurs Peripheral Pulses: pulses 2+ throughout GI normal to inspection, nondistended, normoactive bowel sounds, soft to palpation, non-tender, non-distended and no masses Back/Spine no CVA tenderness and no thoracic nor lumbar tenderness Extremity normal to inspection General Extremety ED: Negative for edema General Extremity: Negative for edema Neuro oriented x3, CN's II-XII intact bilaterally, no sensory deficits noted and gait normal Sensorium / Orientation: awake, alert, oriented to person, oriented to place and oriented to time Motor Exam: strength 5/5 throughout and strength abnormal Psych mental status grossly normal Skin no wounds Skin Narrative: Patient has a red raised rash involving the upper and lower extremities. There is some involvement of her palms but not her feet. There is no involvement of the oral mucosa. Varying sizes of lesions noted. Rash is pruritic. Some of the lesions have a little bit of central clearing followed by more erythema centrally. MDM MDM MDM Narrative Medical decision making narrative: Erythematous rash involving the upper and lower extremities only. In the differential would be a viral rash versus urticaria versus other. Patient will be started on prednisone and Atarax. She will be referred to dermatology for follow-up. Clinically she looks well. There is no vesicles or petechiae. Discharge Plan Triage Chief Complaint: Rash ED Provider: Cordell Carrera Dx/Rx/DC Orders Clinical Impression: Rash Instructions: Nonspecific Skin Rash, ED Viral Exanthem Rash (Adult) Prescriptions: New prednisone 20 mg tablet 20 mg PO BID Qty: 14 0RF hydroxyzine HCl 25 mg tablet 25 mg PO TID PRN (Reason: itching) Qty: 20 0RF No Action prenat 115-iron [id number] 29 mg iron- 1 mg-25 mg Tablet 1 tab PO DAILY ibuprofen [ibuprofen] 600 MG tablet 600 mg PO Q6H PRN (Reason: Pain) Qty: 60 1RF hydrocodone-acetaminophen 5-300 mg tablet 1 tab PO BID PRN (Reason: pain) 4 Days Qty: 7 0RF Primary Care Provider: Matilde Reyes Referrals: Matilde Reyes MD [Primary Care Provider] - Izaiah Johnson MD [Med Staff - Steamship Agent] - 3-5 Days Print Language: [place] Citizen Disposition Disposition: Home, Self Care
[2024-04-19] MEDS: predniSONE 20 MG Tablet 40 MG PO (11:06)
== END 2024-04-19 11:11 | disposition home or self-care (01) ==
LOC: ED 11:06
PROVIDERS: Emergency Provider Emergency Medicine; PCP Family Medicine; Visit Provider Emergency Medicine
DX: R21 Rash and other nonspecific skin eruption (principal); Z87.891 Personal history of nicotine dependence
CPT/HCPCS: 99282